=== PATIENT | female | born 1960 | race Caucasian/White ===

== ENCOUNTER 2018-02-19 19:58 | Emergency (ER) | payer MEDICAID ==
[~2018-02-19] VITALS: Ht 167.6 cm; Wt 65.2 kg
[~2018-02-19 19:58] MED LIST: ANTI INFLAMMATORY; PHE12.5T PO
[2018-02-19 20:08] VITALS: BP 129/68
== END 2018-02-19 22:31 | disposition home or self-care (01) ==
LOC: ER 19:59
DX: S96.911A Strain of unspecified muscle and tendon at ankle and foot level, right foot, initial encounter (principal); J44.9 Chronic obstructive pulmonary disease, unspecified; E11.9 Type 2 diabetes mellitus without complications; I10 Essential (primary) hypertension; F12.90 Cannabis use, unspecified, uncomplicated; Z88.2 Allergy status to sulfonamides; Z79.899 Other long term (current) drug therapy; X50.1XXA Overexertion from prolonged static or awkward postures, initial encounter; Y93.89 Activity, other specified; Y92.89 Other specified places as the place of occurrence of the external cause; Y99.8 Other external cause status
CPT/HCPCS: 29515; 73610; 99284; L4360

== ENCOUNTER 2018-03-19 16:15 | Emergency (ER) | payer MEDICAID ==
[~2018-03-19] VITALS: Ht 170.2 cm; Wt 56.0 kg
[~2018-03-19 16:15] MED LIST changes: +DOCU-28 PO
== END 2018-03-19 17:06 | disposition home or self-care (01) ==
LOC: ER 16:15
DX: M25.571 Pain in right ankle and joints of right foot (principal); M79.674 Pain in right toe(s); I10 Essential (primary) hypertension; J44.9 Chronic obstructive pulmonary disease, unspecified; E11.9 Type 2 diabetes mellitus without complications; F12.90 Cannabis use, unspecified, uncomplicated; Z88.2 Allergy status to sulfonamides; Z79.899 Other long term (current) drug therapy
CPT/HCPCS: 29515; 99284

== ENCOUNTER 2018-03-25 13:20 | Inpatient (IN) | payer MEDICAID ==
[~2018-03-25] VITALS: Ht 170.2 cm; Wt 65.0 kg
[~2018-03-25 13:20] MED LIST changes: -ANTI INFLAMMATORY; -PHE12.5T PO
[2018-03-25 14:08] LABS: CLARITY,URINE CLEAR (Clear); COLOR,URINE STRAW (Yellow); GLUCOSE, URINE NEGATIVE (Neg); KETONES,URINE NEGATIVE (Neg); LEUKOCYTE ESTERASE ,URINE TRACE (Neg); NITRITES, URINE NEGATIVE (Neg); OCCULT BLOOD,URINE MODERATE (Neg); PROTEIN,URINE NEGATIVE (Neg); URINE HCG NEGATIVE (NEG); UROBILINOGEN,URINE 0.2 E.U/dL (0.2-1.0)
[2018-03-25] MEDS ORDERED: iohexol 300mg/ml 100ml inj. ONE (14:15)
[2018-03-25 14:23] LABS: BASOPHILS % (AUTO) 0.4 % (0-1); EOSINOPHILS % (AUTO) 0.2 % (0-6); HEMATOCRIT 38.2 % (35.0-45.0); HEMOGLOBIN 13.3 g/dl (12.0-16.0); LYMPHOCYTES % (AUTO) 23.9 % (21-51); MEAN CORPUSCULAR HEMOGLOBIN 29.3 PG (27.0-31.0); MEAN CORPUSCULAR HGB CONC 34.7 % (33.0-36.5); MEAN CORPUSCULAR VOLUME 84.4 FL (78-98); MEAN PLATELET VOLUME 8.6 FL (7.4-10.4); MONOCYTES % (AUTO) 6.9 % (2-12); NEUTROPHILS % (AUTO) 68.6 % (42-75); PLATELET COUNT 253 X10'3 (140-440); RED BLOOD COUNT 4.53 X10'6 (4.20-5.60); RED CELL DISTRIBUTION WIDTH 12.3 % (11.5-14.5); WHITE BLOOD COUNT 10.1 X10'3 (4.5-11.0)
[2018-03-25 14:23] LABS: UA COLLECTION TYPE CLN CATCH MIDSTREAM
[2018-03-25 14:24] LABS: LYMPHOCYTES # (AUTO) 2.4 X10'3 (1.1-4.8); MONOCYTES # (AUTO) 0.7 X10'3 (0-0.9)
[2018-03-25 14:33] LABS: BACTERIA,URINE FEW /HPF (Neg); WBC,URINE 0-4 /HPF (0-4)
[2018-03-25 14:34] LABS: SQUAMOUS EPITHELIAL CELL,UR MODERATE /LPF (FEW); TRICHOMONAS,URINE FEW /HPF (NEGATIVE)
[2018-03-25 14:37] LABS: ALANINE AMINOTRANSFERASE 20 U/L (12-78); ALBUMIN/GLOBULIN RATIO 1.1 (1.1-1.5); ALKALINE PHOSPHATASE 65 IU/L (46-116); ANION GAP 12 (8-16); ASPARTATE AMINO TRANSFERASE 15 U/L (10-37); BILIRUBIN,TOTAL 0.5 MG/DL (0.1-1.0); BLOOD UREA NITROGEN 11 MG/DL (7-18); BUN/CREATININE RATIO 13.6 (6.6-38.0); CALCIUM 9.4 MG/DL (8.5-10.1); CHLORIDE 107 MMOL/L (99-107); CREATININE 0.81 MG/DL (0.40-0.90); GLUCOSE 105 MG/DL (70-104); POTASSIUM 3.3 MMOL/L (3.5-5.1); SODIUM 144 MMOL/L (135-145); TOTAL CARBON DIOXIDE 25.3 MMOL/L (24-32); TOTAL PROTEIN 7.5 G/DL (6.4-8.2); eGFR 73 ML/MIN
[2018-03-25] MEDS ORDERED: SENN-173 PO (15:53)
[2018-03-25] MEDS ORDERED: HYDR-3964 PO (15:53)
[2018-03-25] MEDS ORDERED: DOCU100C59 PO (15:53)
[2018-03-25] MEDS ORDERED: POLY255P2 PO (15:53)
[2018-03-25] MEDS ORDERED: morphine 4 MG/ML inj SYRINge IV ONE (18:25)
[2018-03-25] MEDS ORDERED: ondansetron/PF 4mg/2ml inj IV ONE (18:40)
[2018-03-25] MEDS ORDERED: acetaminophen 325mg tablet PO PRN (21:50)
[2018-03-25] MEDS ORDERED: morphine 2 MG/ML inj. syringe IV PRN (21:50)
[2018-03-25] MEDS ORDERED: mag hydrox/Alum hydrox/simeth 30ml oral suspension PO PRN (21:50)
[2018-03-25] MEDS ORDERED: magnesium hydroxide 30ml (MOM) UD suspension PO PRN (21:50)
[2018-03-25] MEDS ORDERED: ondansetron/PF 4mg/2ml inj IV PRN (21:50)
[2018-03-25 22:30] VITALS: BP 139/72
[2018-03-25] MEDS: morphine 2 MG/ML inj. syringe IV PRN (22:34)
[2018-03-25] MEDS: normal saline 1000ml 1,000 ML IV SCH (22:38)
[2018-03-25] MEDS: diatr meglu/diatrizoate 30ml oral sol.-(3 dose) bottle PO SCH (22:39)
[2018-03-26] MEDS: morphine 2 MG/ML inj. syringe IV PRN ×2 (02:54→12:40)
[2018-03-26 06:05] LABS: ALANINE AMINOTRANSFERASE 19 U/L (12-78); ALBUMIN 3.4 G/DL (3.4-5.0); ALBUMIN/GLOBULIN RATIO 1.1 (1.1-1.5); ALKALINE PHOSPHATASE 64 IU/L (46-116); ANION GAP 12 (8-16); ASPARTATE AMINO TRANSFERASE 19 U/L (10-37); BILIRUBIN,TOTAL 0.5 MG/DL (0.1-1.0); BLOOD UREA NITROGEN 11 MG/DL (7-18); BUN/CREATININE RATIO 16.2 (6.6-38.0); CALCIUM 8.4 MG/DL (8.5-10.1); CHLORIDE 108 MMOL/L (99-107); CREATININE 0.68 MG/DL (0.40-0.90); GLUCOSE 86 MG/DL (70-104); POTASSIUM 3.6 MMOL/L (3.5-5.1); SODIUM 144 MMOL/L (135-145); TOTAL CARBON DIOXIDE 24.5 MMOL/L (24-32); TOTAL PROTEIN 6.6 G/DL (6.4-8.2); eGFR 90 ML/MIN
[2018-03-26 06:20] LABS: MEAN CORPUSCULAR HEMOGLOBIN 30.1 PG (27.0-31.0); MEAN CORPUSCULAR HGB CONC 35.4 % (33.0-36.5); MEAN PLATELET VOLUME 9.1 FL (7.4-10.4); NEUTROPHILS % (AUTO) 57.6 % (42-75); PLATELET COUNT 220 X10'3 (140-440); RED CELL DISTRIBUTION WIDTH 12.3 % (11.5-14.5)
[2018-03-26 06:21] LABS: BASOPHILS % (AUTO) 0.4 % (0-1); EOSINOPHILS % (AUTO) 0.7 % (0-6); HEMATOCRIT 35.8 % (35.0-45.0); HEMOGLOBIN 12.7 g/dl (12.0-16.0); LYMPHOCYTES % (AUTO) 32.3 % (21-51); MEAN CORPUSCULAR VOLUME 85.1 FL (78-98); WHITE BLOOD COUNT 7.8 X10'3 (4.5-11.0)
[2018-03-26 06:22] LABS: EOSINOPHILS # (AUTO) 0.1 X10'3 (0-0.9); LYMPHOCYTES # (AUTO) 2.5 X10'3 (1.1-4.8); MONOCYTES # (AUTO) 0.7 X10'3 (0-0.9); NEUTROPHILS # (AUTO) 4.5 X10'3 (1.8-7.7)
[2018-03-26 07:00] VITALS: BP 122/80
[2018-03-26] MEDS ORDERED: diatr meglu/diatrizoate 30ml oral sol.-(3 dose) bottle PO SCH (07:00)
[2018-03-26] MEDS: diatr meglu/diatrizoate 30ml oral sol.-(3 dose) bottle PO SCH ×2 (07:01→09:30)
[2018-03-26] MEDS ORDERED: iohexol 300mg/ml 100ml inj. ONE (08:49)
[2018-03-26] MEDS ORDERED: potassium Cl 20 mEq SR tablet PO PRN ×2 (09:45)
[2018-03-26] MEDS ORDERED: magnesium 4gm in 100ml NS 100 ML IV PRN (09:45)
[2018-03-26] MEDS ORDERED: potassium Cl 40MEQ/NS 500ml 500 ML IV PRN ×2 (09:45)
[2018-03-26] MEDS ORDERED: magnesium 1gm/100ml D5W IVPB 100 ML IV PRN (09:45)
[2018-03-26] MEDS ORDERED: magnesium Cl slow-release 64mg tablet PO PRN (09:45)
[2018-03-26] MEDS: normal saline 1000ml 1,000 ML IV SCH (10:10)
[2018-03-26 11:00] VITALS: BP 140/81
[2018-03-30 08:56] LABS: OCCULT BLOOD STOOL POSITIVE (Neg)
== END 2018-03-26 16:29 | disposition home or self-care (01) | DRG 252 ==
LOC: ER 13:20 → ED HOLD 21:49 → SUR 3N 22:25
PROVIDERS: ADMIT Internal Medicine; ATTEND Family Medicine
PROC: BW211ZZ Computerized Tomography (CT Scan) of Abdomen and Pelvis using Low Osmolar Contrast (ICD-10-PCS; principal; 2018-03-25)
PROC: BW211ZZ Computerized Tomography (CT Scan) of Abdomen and Pelvis using Low Osmolar Contrast (ICD-10-PCS; 2018-03-26)
DX: K91.89 Other postprocedural complications and disorders of digestive system (principal); K56.7 Ileus, unspecified; E11.9 Type 2 diabetes mellitus without complications; F12.90 Cannabis use, unspecified, uncomplicated; I10 Essential (primary) hypertension; J44.9 Chronic obstructive pulmonary disease, unspecified; K62.5 Hemorrhage of anus and rectum; F32.9 Major depressive disorder, single episode, unspecified; F41.9 Anxiety disorder, unspecified; Z88.2 Allergy status to sulfonamides
CPT/HCPCS: 36415; 74177; 80053; 81001; 81025; 82272; 85025; 87070; 87077; 87088; 96374; 96375; 99285; J2270; J2405; J7030; Q9963; Q9967

== ENCOUNTER 2018-06-08 17:25 | Inpatient (IN) | payer MEDICAID ==
[~2018-06-08] VITALS: Ht 170.2 cm; Wt 63.6 kg
[~2018-06-08 17:25] MED LIST changes: -DOCU-28 PO; +DOCU100C59 PO; +HYDR-3964 PO; +POLY255P19 PO; +SENN-173 PO
[2018-06-08 18:39] LABS: BASOPHILS # (AUTO) 0.1 X10'3 (0-0.2); BASOPHILS % (AUTO) 0.4 % (0-1); EOSINOPHILS % (AUTO) 0.1 % (0-6); HEMATOCRIT 35.5 % (35.0-45.0); HEMOGLOBIN 11.9 g/dl (12.0-16.0); LYMPHOCYTES # (AUTO) 1.9 X10'3 (1.1-4.8); LYMPHOCYTES % (AUTO) 13.6 % (21-51); MEAN CORPUSCULAR HEMOGLOBIN 28.4 PG (27.0-31.0); MEAN CORPUSCULAR HGB CONC 33.4 % (33.0-36.5); MEAN CORPUSCULAR VOLUME 85.3 FL (78-98); MEAN PLATELET VOLUME 7.9 FL (7.4-10.4); MONOCYTES # (AUTO) 1.1 X10'3 (0-0.9); MONOCYTES % (AUTO) 7.6 % (2-12); NEUTROPHILS # (AUTO) 11.1 X10'3 (1.8-7.7); NEUTROPHILS % (AUTO) 78.3 % (42-75); PLATELET COUNT 246 X10'3 (140-440); RED BLOOD COUNT 4.17 X10'6 (4.20-5.60); RED CELL DISTRIBUTION WIDTH 13.1 % (11.5-14.5); WHITE BLOOD COUNT 14.2 X10'3 (4.5-11.0)
[2018-06-08 18:55] LABS: ALANINE AMINOTRANSFERASE 17 U/L (12-78); ALBUMIN 3.5 G/DL (3.4-5.0); ALBUMIN/GLOBULIN RATIO 0.9 (1.1-1.5); ALKALINE PHOSPHATASE 70 IU/L (46-116); ANION GAP 14 (8-16); ASPARTATE AMINO TRANSFERASE 12 U/L (10-37); BILIRUBIN,TOTAL 0.4 MG/DL (0.1-1.0); BLOOD UREA NITROGEN 15 MG/DL (7-18); BUN/CREATININE RATIO 20.3 (6.6-38.0); CALCIUM 9.1 MG/DL (8.5-10.1); CHLORIDE 102 MMOL/L (99-107); CREATININE 0.74 MG/DL (0.40-0.90); GLUCOSE 121 MG/DL (70-104); POTASSIUM 3.7 MMOL/L (3.5-5.1); SODIUM 138 MMOL/L (135-145); TOTAL CARBON DIOXIDE 22.5 MMOL/L (24-32); TOTAL PROTEIN 7.2 G/DL (6.4-8.2); eGFR 81 ML/MIN
[2018-06-08 18:59] LABS: INR 1.1 INR; PARTIAL THROMBOPLASTIN TIME 29 SECONDS (22-32); PROTHROMBIN TIME 10.9 SECONDS (9.0-12.0)
[2018-06-08] MEDS ORDERED: clindamycin 600mg/D5W 50ml 50 ML IV ONE (19:00)
[2018-06-08] MEDS ORDERED: iohexol 300mg/ml 100ml inj. ONE (19:04)
[2018-06-08] MEDS ORDERED: morphine 4 MG/ML inj SYRINge IV ONE (19:45)
[2018-06-08] MEDS ORDERED: ondansetron/PF 4mg/2ml inj IV ONE (19:45)
[2018-06-08] MEDS ORDERED: NO HOME MEDS (20:53)
[2018-06-08] MEDS ORDERED: morphine 4 MG/ML inj SYRINge IV PRN ×2 (20:55)
[2018-06-08] MEDS ORDERED: acetaminophen 325mg tablet PO PRN (20:55)
[2018-06-08] MEDS ORDERED: mag hydrox/Alum hydrox/simeth 30ml oral suspension PO PRN (20:55)
[2018-06-08] MEDS ORDERED: magnesium hydroxide 30ml (MOM) UD suspension PO PRN (20:55)
[2018-06-08] MEDS ORDERED: HYDROcodone/acetaminophen 5mg/325mg tablet PO PRN (20:55)
[2018-06-08 21:25] VITALS: BP 116/76
[2018-06-08] MEDS: normal saline 1000ml 1,000 ML IV SCH (21:53)
[2018-06-09] VITALS: BP 98/63
[2018-06-09] MEDS: clindamycin 600mg/D5W 50ml 50 ML IV SCH ×4 (01:57→19:23)
[2018-06-09 05:09] LABS: BASOPHILS % (AUTO) 0.3 % (0-1); EOSINOPHILS # (AUTO) 0.2 X10'3 (0-0.9); EOSINOPHILS % (AUTO) 1.9 % (0-6); LYMPHOCYTES % (AUTO) 16.5 % (21-51); MEAN CORPUSCULAR HEMOGLOBIN 28.2 PG (27.0-31.0); MEAN CORPUSCULAR HGB CONC 33.2 % (33.0-36.5); MEAN PLATELET VOLUME 8.1 FL (7.4-10.4); MONOCYTES # (AUTO) 1.2 X10'3 (0-0.9); MONOCYTES % (AUTO) 9.5 % (2-12); NEUTROPHILS # (AUTO) 8.8 X10'3 (1.8-7.7); NEUTROPHILS % (AUTO) 71.8 % (42-75); PLATELET COUNT 219 X10'3 (140-440); RED BLOOD COUNT 3.89 X10'6 (4.20-5.60); RED CELL DISTRIBUTION WIDTH 13.3 % (11.5-14.5); WHITE BLOOD COUNT 12.2 X10'3 (4.5-11.0)
[2018-06-09 05:25] LABS: ALANINE AMINOTRANSFERASE 14 U/L (12-78); ALBUMIN/GLOBULIN RATIO 0.9 (1.1-1.5); ALKALINE PHOSPHATASE 59 IU/L (46-116); ANION GAP 11 (8-16); ASPARTATE AMINO TRANSFERASE 11 U/L (10-37); BILIRUBIN,TOTAL 0.6 MG/DL (0.1-1.0); BLOOD UREA NITROGEN 11 MG/DL (7-18); BUN/CREATININE RATIO 14.7 (6.6-38.0); CALCIUM 8.5 MG/DL (8.5-10.1); CHLORIDE 105 MMOL/L (99-107); CREATININE 0.75 MG/DL (0.40-0.90); GLUCOSE 100 MG/DL (70-104); POTASSIUM 4.3 MMOL/L (3.5-5.1); SODIUM 139 MMOL/L (135-145); TOTAL CARBON DIOXIDE 23.1 MMOL/L (24-32); TOTAL PROTEIN 6.4 G/DL (6.4-8.2); eGFR 80 ML/MIN
[2018-06-09] MEDS: normal saline 1000ml 1,000 ML IV SCH ×3 (06:55→22:03)
[2018-06-09] MEDS: heparin, porcine 5000 units/ml vial SQ SCH ×2 (07:44→19:24)
[2018-06-09] MEDS: ondansetron/PF 4mg/2ml inj IV PRN ×2 (07:57→21:57)
[2018-06-09 08:05] VITALS: BP 117/73
[2018-06-09] MEDS ORDERED: potassium Cl 40MEQ/NS 500ml 500 ML IV PRN ×2 (09:05)
[2018-06-09] MEDS ORDERED: potassium Cl 20 mEq SR tablet PO PRN ×2 (09:05)
[2018-06-09] MEDS ORDERED: magnesium 4gm in 100ml NS 100 ML IV PRN (09:05)
[2018-06-09] MEDS ORDERED: magnesium Cl slow-release 64mg tablet PO PRN (09:05)
[2018-06-09 11:55] VITALS: BP 89/56
[2018-06-09] MEDS: vancomycin/NS 1 GM ADD-VANTAGE 250 ML IV SCH (14:00)
[2018-06-09 16:43] LABS: CLARITY,URINE CLOUDY (Clear); COLOR,URINE YELLOW (Yellow); GLUCOSE, URINE NEGATIVE (Neg); KETONES,URINE NEGATIVE (Neg); LEUKOCYTE ESTERASE ,URINE LARGE (Neg); NITRITES, URINE NEGATIVE (Neg); OCCULT BLOOD,URINE SMALL (Neg); PH,URINE 7.5 (4.8-8.0); PROTEIN,URINE NEGATIVE (Neg); UROBILINOGEN,URINE 0.2 E.U/dL (0.2-1.0)
[2018-06-09 16:52] LABS: URINE AMPHETAMINE SCREEN NEGATIVE (Neg); URINE BARBITUATE SCREEN NEGATIVE (Neg); URINE BENZODIAZEPINES SCREEN NEGATIVE (Neg); URINE CANNABINOID SCREEN POSITIVE (Neg); URINE COCAINE SCREEN NEGATIVE (Neg); URINE METHADONE SCREEN NEGATIVE (Neg); URINE OPIATE SCREEN POSITIVE (Neg); URINE PHENCYCLIDINE SCREEN NEGATIVE (Neg)
[2018-06-09 16:59] LABS: UA COLLECTION TYPE NON-SPECIFIED
[2018-06-09 17:00] LABS: WBC,URINE 50-100 /HPF (0-4)
[2018-06-09 17:01] LABS: BACTERIA,URINE 2+ /HPF (Neg); RBC,URINE 0-2 /HPF (0-2); SQUAMOUS EPITHELIAL CELL,UR MODERATE /LPF (FEW); TRICHOMONAS,URINE FEW /HPF (NEGATIVE)
[2018-06-09] MEDS: HYDROcodone/acetaminophen 10/325mg tab PO PRN (19:00)
[2018-06-09 19:51] VITALS: BP 120/80
[2018-06-10] VITALS (17 sets, daily range): BP systolic 92–148; BP diastolic 62–94
[2018-06-10] MEDS: clindamycin 600mg/D5W 50ml 50 ML IV SCH ×4 (01:32→20:12)
[2018-06-10] MEDS: vancomycin/NS 1 GM ADD-VANTAGE 250 ML IV SCH ×2 (02:54→15:46)
[2018-06-10] MEDS: ondansetron/PF 4mg/2ml inj IV PRN ×2 (04:34→17:36)
[2018-06-10 05:11] LABS: BASOPHILS % (AUTO) 0.3 % (0-1); EOSINOPHILS # (AUTO) 0.2 X10'3 (0-0.9); HEMATOCRIT 32.3 % (35.0-45.0); LYMPHOCYTES # (AUTO) 1.7 X10'3 (1.1-4.8); LYMPHOCYTES % (AUTO) 22.6 % (21-51); MEAN CORPUSCULAR HEMOGLOBIN 28.8 PG (27.0-31.0); MEAN CORPUSCULAR HGB CONC 33.9 % (33.0-36.5); MEAN CORPUSCULAR VOLUME 84.9 FL (78-98); MEAN PLATELET VOLUME 8.2 FL (7.4-10.4); MONOCYTES # (AUTO) 0.8 X10'3 (0-0.9); MONOCYTES % (AUTO) 10.3 % (2-12); NEUTROPHILS # (AUTO) 4.9 X10'3 (1.8-7.7); NEUTROPHILS % (AUTO) 64.8 % (42-75); PLATELET COUNT 221 X10'3 (140-440); RED BLOOD COUNT 3.81 X10'6 (4.20-5.60); WHITE BLOOD COUNT 7.6 X10'3 (4.5-11.0)
[2018-06-10 05:26] LABS: ALANINE AMINOTRANSFERASE 18 U/L (12-78); ALBUMIN 2.8 G/DL (3.4-5.0); ALBUMIN/GLOBULIN RATIO 0.8 (1.1-1.5); ALKALINE PHOSPHATASE 63 IU/L (46-116); ANION GAP 12 (8-16); ASPARTATE AMINO TRANSFERASE 14 U/L (10-37); BILIRUBIN,TOTAL 0.3 MG/DL (0.1-1.0); BLOOD UREA NITROGEN 10 MG/DL (7-18); BUN/CREATININE RATIO 15.2 (6.6-38.0); CALCIUM 8.6 MG/DL (8.5-10.1); CHLORIDE 107 MMOL/L (99-107); CREATININE 0.66 MG/DL (0.40-0.90); GLUCOSE 94 MG/DL (70-104); POTASSIUM 3.8 MMOL/L (3.5-5.1); SODIUM 141 MMOL/L (135-145); TOTAL CARBON DIOXIDE 22.5 MMOL/L (24-32); TOTAL PROTEIN 6.3 G/DL (6.4-8.2); eGFR > 90 ML/MIN
[2018-06-10] MEDS: heparin, porcine 5000 units/ml vial SQ SCH ×2 (08:00→20:12)
[2018-06-10] MEDS: normal saline 1000ml 1,000 ML IV SCH ×2 (11:03→20:12)
[2018-06-10] MEDS ORDERED: meclizine 12.5mg tablet PO PRN (14:00)
[2018-06-10] MEDS ORDERED: ringers solution, lacted 1,000 ML IV SCH ×2 (16:37→18:57)
[2018-06-10] MEDS ORDERED: proCHLORperazine 10 MG/2 ml inj IV PRN ×2 (16:40→19:00)
[2018-06-10] MEDS ORDERED: ondansetron/PF 4mg/2ml inj IV PRN ×2 (16:40→19:00)
[2018-06-10] MEDS ORDERED: meperidine/PF 25mg/ml syringe IV PRN ×5 (16:40→19:00)
[2018-06-10] MEDS ORDERED: morphine 4 MG/ML inj SYRINge IV PRN ×4 (16:40→19:00)
[2018-06-10] MEDS ORDERED: fentaNYL/PF 50MCG/1 ML 2ML syringe ONE (18:34)
[2018-06-10] MEDS ORDERED: ondansetron/PF 4mg/2ml inj ONE (18:35)
[2018-06-10] MEDS ORDERED: midazolam 2 mg/2 ml injection ONE (18:35)
[2018-06-10] MEDS ORDERED: sevoflurane 250ml liquid IH ONE (18:35)
[2018-06-10] MEDS ORDERED: propofol inj 20 ML IV ONE (19:07)
[2018-06-10] MEDS ORDERED: succinylcholine 20mg/ml inj IV ONE (19:07)
[2018-06-10] MEDS ORDERED: LIDOcaine 2% (20mg/ml) 5ml vial ONE (19:07)
[2018-06-10] MEDS ORDERED: dexamethasone sod phosphate 4mg/ml inj. ONE (19:07)
[2018-06-10] MEDS: meperidine/PF 25mg/ml syringe IV PRN ×3 (19:19→19:31)
[2018-06-10] MEDS ORDERED: diphenhydrAMINE 50 mg/ml inj IV ONE (19:25)
[2018-06-10] MEDS ORDERED: acetaminophen 1,000mg/100ml IV 100 ML IV ONE (19:25)
[2018-06-10] MEDS: lactobacillus rhamnosus 10,000 MMU CELLS/CAPSULE PO SCH (20:00)
[2018-06-10] MEDS: traMADol 50MG tablet PO PRN (21:22)
[2018-06-11] VITALS: BP 94/61
[2018-06-11] MEDS ORDERED: VANCOMYCIN LEVEL IV ONE (01:30)
[2018-06-11] MEDS: clindamycin 600mg/D5W 50ml 50 ML IV SCH ×4 (01:38→19:17)
[2018-06-11 02:21] LABS: BASOPHILS % (AUTO) 0.3 % (0-1); EOSINOPHILS # (AUTO) 0.1 X10'3 (0-0.9); EOSINOPHILS % (AUTO) 1.1 % (0-6); HEMATOCRIT 27.4 % (35.0-45.0); HEMOGLOBIN 9.2 g/dl (12.0-16.0); LYMPHOCYTES # (AUTO) 0.6 X10'3 (1.1-4.8); LYMPHOCYTES % (AUTO) 8.8 % (21-51); MEAN CORPUSCULAR HEMOGLOBIN 28.4 PG (27.0-31.0); MEAN CORPUSCULAR HGB CONC 33.5 % (33.0-36.5); MEAN CORPUSCULAR VOLUME 84.8 FL (78-98); MEAN PLATELET VOLUME 8.1 FL (7.4-10.4); MONOCYTES # (AUTO) 0.1 X10'3 (0-0.9); MONOCYTES % (AUTO) 1.9 % (2-12); NEUTROPHILS # (AUTO) 6.2 X10'3 (1.8-7.7); NEUTROPHILS % (AUTO) 87.9 % (42-75); PLATELET COUNT 204 X10'3 (140-440); RED BLOOD COUNT 3.23 X10'6 (4.20-5.60); RED CELL DISTRIBUTION WIDTH 12.7 % (11.5-14.5); WHITE BLOOD COUNT 7.1 X10'3 (4.5-11.0)
[2018-06-11] MEDS: vancomycin/NS 1 GM ADD-VANTAGE 250 ML IV SCH (02:31)
[2018-06-11 02:32] LABS: ALANINE AMINOTRANSFERASE 15 U/L (12-78); ALBUMIN 2.2 G/DL (3.4-5.0); ALBUMIN/GLOBULIN RATIO 0.8 (1.1-1.5); ANION GAP 10 (8-16); ASPARTATE AMINO TRANSFERASE 11 U/L (10-37); BILIRUBIN,TOTAL 0.2 MG/DL (0.1-1.0); BLOOD UREA NITROGEN 7 MG/DL (7-18); BUN/CREATININE RATIO 11.3 (6.6-38.0); CALCIUM 6.6 MG/DL (8.5-10.1); CHLORIDE 113 MMOL/L (99-107); CREATININE 0.62 MG/DL (0.40-0.90); GLUCOSE 115 MG/DL (70-104); POTASSIUM 3.4 MMOL/L (3.5-5.1); SODIUM 142 MMOL/L (135-145); TOTAL CARBON DIOXIDE 19.2 MMOL/L (24-32); VANCOMYCIN,TROUGH 6.4 UG/ML (6.0-14.0); eGFR > 90 ML/MIN
[2018-06-11 02:47] LABS: ALKALINE PHOSPHATASE 48 IU/L (46-116)
[2018-06-11 04:00] VITALS: BP 116/78
[2018-06-11] MEDS: traMADol 50MG tablet PO PRN ×3 (06:02→21:17)
[2018-06-11 08:00] VITALS: BP 122/73
[2018-06-11] MEDS: lactobacillus rhamnosus 10,000 MMU CELLS/CAPSULE PO SCH ×2 (09:32→19:17)
[2018-06-11] MEDS: normal saline 1000ml 1,000 ML IV SCH ×2 (09:33→18:55)
[2018-06-11] MEDS: heparin, porcine 5000 units/ml vial SQ SCH ×2 (09:33→19:17)
[2018-06-11 12:00] VITALS: BP 143/99
[2018-06-11] MEDS ORDERED: tetanus & diphtheria toxoid (Td) vaccine 0.5ml IMVAC ONE (16:10)
[2018-06-11 20:00] VITALS: BP 145/85
[2018-06-11] MEDS: HYDROcodone/acetaminophen 10/325mg tab PO PRN (21:27)
[2018-06-12] VITALS: BP 120/76
[2018-06-12] MEDS: normal saline 1000ml 1,000 ML IV SCH ×2 (00:13→14:21)
[2018-06-12] MEDS: clindamycin 600mg/D5W 50ml 50 ML IV SCH ×3 (01:33→13:12)
[2018-06-12] MEDS: HYDROcodone/acetaminophen 10/325mg tab PO PRN ×2 (01:33→05:28)
[2018-06-12] MEDS: traMADol 50MG tablet PO PRN (05:05)
[2018-06-12 05:45] LABS: BASOPHILS % (AUTO) 0.5 % (0-1); EOSINOPHILS # (AUTO) 0.1 X10'3 (0-0.9); EOSINOPHILS % (AUTO) 1.7 % (0-6); HEMATOCRIT 33.2 % (35.0-45.0); HEMOGLOBIN 10.9 g/dl (12.0-16.0); LYMPHOCYTES # (AUTO) 2.6 X10'3 (1.1-4.8); LYMPHOCYTES % (AUTO) 35.7 % (21-51); MEAN CORPUSCULAR HGB CONC 32.9 % (33.0-36.5); MEAN CORPUSCULAR VOLUME 85.2 FL (78-98); MEAN PLATELET VOLUME 8.3 FL (7.4-10.4); MONOCYTES # (AUTO) 0.6 X10'3 (0-0.9); MONOCYTES % (AUTO) 7.5 % (2-12); NEUTROPHILS % (AUTO) 54.6 % (42-75); PLATELET COUNT 284 X10'3 (140-440); RED CELL DISTRIBUTION WIDTH 12.8 % (11.5-14.5); WHITE BLOOD COUNT 7.3 X10'3 (4.5-11.0)
[2018-06-12 06:16] LABS: ALANINE AMINOTRANSFERASE 21 U/L (12-78); ALBUMIN 2.7 G/DL (3.4-5.0); ALBUMIN/GLOBULIN RATIO 0.8 (1.1-1.5); ALKALINE PHOSPHATASE 56 IU/L (46-116); ANION GAP 10 (8-16); ASPARTATE AMINO TRANSFERASE 15 U/L (10-37); BILIRUBIN,TOTAL 0.3 MG/DL (0.1-1.0); BLOOD UREA NITROGEN 8 MG/DL (7-18); BUN/CREATININE RATIO 10.8 (6.6-38.0); CALCIUM 8.2 MG/DL (8.5-10.1); CHLORIDE 109 MMOL/L (99-107); CREATININE 0.74 MG/DL (0.40-0.90); GLUCOSE 84 MG/DL (70-104); POTASSIUM 3.9 MMOL/L (3.5-5.1); SODIUM 141 MMOL/L (135-145); TOTAL CARBON DIOXIDE 21.9 MMOL/L (24-32); TOTAL PROTEIN 6.2 G/DL (6.4-8.2); eGFR 81 ML/MIN
[2018-06-12 07:00] VITALS: BP 134/86
[2018-06-12] MEDS: lactobacillus rhamnosus 10,000 MMU CELLS/CAPSULE PO SCH ×2 (07:39→20:49)
[2018-06-12] MEDS: heparin, porcine 5000 units/ml vial SQ SCH ×2 (07:39→20:49)
[2018-06-12] MEDS ORDERED: LIDOcaine 4% (40 mg/ml) topical solution 50ml TP ONE (11:10)
[2018-06-12] MEDS ORDERED: ketorolac trometh. 30mg/ml inj. IV PRN (14:00)
[2018-06-12 20:00] VITALS: BP 126/77
[2018-06-13] VITALS: BP 128/71
[2018-06-13] MEDS ORDERED: VANCOMYCIN LEVEL IV ONE (01:30)
[2018-06-13] MEDS: normal saline 1000ml 1,000 ML IV SCH ×2 (01:59→10:55)
[2018-06-13] MEDS ORDERED: diphenhydrAMINE 50 mg/ml inj IV PRN (02:00)
[2018-06-13 02:03] LABS: BASOPHILS % (AUTO) 0.5 % (0-1); EOSINOPHILS # (AUTO) 0.1 X10'3 (0-0.9); EOSINOPHILS % (AUTO) 2.4 % (0-6); HEMATOCRIT 35.2 % (35.0-45.0); HEMOGLOBIN 11.6 g/dl (12.0-16.0); LYMPHOCYTES # (AUTO) 2.1 X10'3 (1.1-4.8); LYMPHOCYTES % (AUTO) 37.5 % (21-51); MEAN CORPUSCULAR HEMOGLOBIN 27.9 PG (27.0-31.0); MEAN CORPUSCULAR HGB CONC 32.9 % (33.0-36.5); MEAN CORPUSCULAR VOLUME 84.8 FL (78-98); MEAN PLATELET VOLUME 8.4 FL (7.4-10.4); MONOCYTES # (AUTO) 0.5 X10'3 (0-0.9); MONOCYTES % (AUTO) 8.5 % (2-12); NEUTROPHILS # (AUTO) 2.9 X10'3 (1.8-7.7); NEUTROPHILS % (AUTO) 51.1 % (42-75); PLATELET COUNT 303 X10'3 (140-440); RED BLOOD COUNT 4.15 X10'6 (4.20-5.60); RED CELL DISTRIBUTION WIDTH 12.6 % (11.5-14.5); WHITE BLOOD COUNT 5.7 X10'3 (4.5-11.0)
[2018-06-13 02:04] LABS: ALANINE AMINOTRANSFERASE 22 U/L (12-78); ALBUMIN 2.9 G/DL (3.4-5.0); ALBUMIN/GLOBULIN RATIO 0.8 (1.1-1.5); ALKALINE PHOSPHATASE 69 IU/L (46-116); ANION GAP 11 (8-16); ASPARTATE AMINO TRANSFERASE 16 U/L (10-37); BILIRUBIN,TOTAL 0.2 MG/DL (0.1-1.0); BLOOD UREA NITROGEN 10 MG/DL (7-18); BUN/CREATININE RATIO 14.1 (6.6-38.0); CALCIUM 8.7 MG/DL (8.5-10.1); CHLORIDE 107 MMOL/L (99-107); CREATININE 0.71 MG/DL (0.40-0.90); GLUCOSE 92 MG/DL (70-104); POTASSIUM 3.9 MMOL/L (3.5-5.1); SODIUM 142 MMOL/L (135-145); TOTAL CARBON DIOXIDE 24.2 MMOL/L (24-32); TOTAL PROTEIN 6.6 G/DL (6.4-8.2); VANCOMYCIN,TROUGH 14.4 UG/ML (6.0-14.0); eGFR 85 ML/MIN
[2018-06-13 07:14] VITALS: BP 129/75
[2018-06-13] MEDS: lactobacillus rhamnosus 10,000 MMU CELLS/CAPSULE PO SCH (08:10)
[2018-06-13] MEDS: heparin, porcine 5000 units/ml vial SQ SCH (08:10)
[2018-06-13] MEDS ORDERED: DOXY-200 PO (10:47)
== END 2018-06-13 12:54 | disposition home or self-care (01) | DRG 710 ==
LOC: ER 17:26 → ED HOLD 20:55 → SUR 3N 21:33 → PAS IN 06-10 18:05 → SUR 3N 06-10 19:50
PROVIDERS: ADMIT Internal Medicine; ATTEND Family Medicine
PROC: BW2G1ZZ Computerized Tomography (CT Scan) of Pelvic Region using Low Osmolar Contrast (ICD-10-PCS; principal; 2018-06-08)
PROC: 0U9MXZZ Drainage of Vulva, External Approach (ICD-10-PCS; 2018-06-11)
PROC: 0UC Female Reproductive System, Extirpation (ICD-10-PCS; 2018-06-11)
DX: A41.9 Sepsis, unspecified organism (principal); G92 Toxic encephalopathy; L03.314 Cellulitis of groin; D64.9 Anemia, unspecified; E11.9 Type 2 diabetes mellitus without complications; E87.6 Hypokalemia; B95.62 Methicillin resistant Staphylococcus aureus infection as the cause of diseases classified elsewhere; T40.605A Adverse effect of unspecified narcotics, initial encounter; I10 Essential (primary) hypertension; J44.9 Chronic obstructive pulmonary disease, unspecified; N76.4 Abscess of vulva; F12.90 Cannabis use, unspecified, uncomplicated; F32.9 Major depressive disorder, single episode, unspecified; F41.9 Anxiety disorder, unspecified; Z88.2 Allergy status to sulfonamides; Y92.89 Other specified places as the place of occurrence of the external cause; Z79.899 Other long term (current) drug therapy
CPT/HCPCS: 36415; 71045; 72193; 80053; 80202; 80305; 81001; 83605; 84145; 85025; 85610; 85730; 87040; 87070; 87075; 87077; 87088; 87102; 87186; 90715; 93005; 96365; 96375; 99285; A6253; A6266; A6449; A7000; G0378; J0131; J0330; J1100; J1200; J1644; J1885; J2001; J2175; J2250; J2270; J2405; J2704; J3010; J3370; J3490; J7030; J7120; Q9967